=== PATIENT | male | born 1975 | race Caucasian/White ===

== ENCOUNTER 2016-12-24 17:36 | Emergency (ER) | payer BC ==
[~2016-12-24] VITALS: Ht 180.3 cm; Wt 81.7 kg
[2016-12-25] MEDS ORDERED: PROTONIX40 MG PO (00:12)
== END 2016-12-24 19:53 | disposition home or self-care (01) ==
LOC: ED 17:36
DX: E16.2 Hypoglycemia, unspecified (principal)
CPT/HCPCS: 80048; 99283

== ENCOUNTER 2016-12-24 23:55 | Emergency (ER) | payer BC ==
[~2016-12-24] VITALS: Ht 180.3 cm; Wt 81.7 kg
[2016-12-25] MEDS ORDERED: PROTONIX40 MG PO (00:12)
--- NOTE | 2016-12-26 22:27 | EKG ---
[facility] [address] [facility] [place] [address] Signed Normal sinus rhythm Normal ECG No previous ECGs available Confirmed by HANK DOSS MD ([id number]) on 12/26/2016 10:27:47 PM Electronically Signed By: HANK DOSS MD 12/26/16 2227 PATIENT NAME: JORDAN MOSCOSO Electrocardiogram DATE OF : 79 PHYSICIAN: HANK DOSS MD REPORT #: [id number] REPORT IS CONFIDENTIAL AND NOT TO BE RELEASED WITHOUT AUTHORIZATION
== END 2016-12-25 02:28 | disposition home or self-care (01) ==
LOC: ED 23:55
DX: R11.10 Vomiting, unspecified (principal); R19.7 Diarrhea, unspecified; Z79.899 Other long term (current) drug therapy
CPT/HCPCS: 74177; 84436; 84479; 84480; 85025; 93005; 93010; 96361; 96374; 99284; J2405; J7030; Q9967

== ENCOUNTER 2017-01-06 22:31 | Emergency (ER) | payer BC ==
[~2017-01-06] VITALS: Ht 180.3 cm; Wt 81.7 kg
[~2017-01-06 22:31] MED LIST: PROTONIX40 MG PO
[2017-01-07] MEDS ORDERED: GLUTOSE 1537.5 GM PO (00:16)
== END 2017-01-07 00:26 | disposition home or self-care (01) ==
LOC: ED 22:31
DX: E16.2 Hypoglycemia, unspecified (principal); Z79.899 Other long term (current) drug therapy
CPT/HCPCS: 80053; 81001; 85025; 96374; 99283; J2405

== ENCOUNTER 2019-03-13 18:27 | Inpatient (IN) | payer BC ==
[~2019-03-13] VITALS: Ht 180.3 cm; Wt 88.2 kg
--- OUTSIDE RECORDS SUMMARY | ~2019-03-13 | XMS | Encounter Summary ---
Demographics + + + | Address | [address] | | | [place] [address] | + + + | Home Phone | | + + + | Preferred Language | Unknown | + + + | Marital Status | Single | + + + | Gnosticist Affiliation | 1077 | + + + | Race | Unknown | + + + | Ethnic Group | Unknown | + + + Author + + + | Author | [facility] | | | and Freddy | + + + | Organization | [facility] | | | and [place]uel[place] | + + + | Address | Unknown | + + + | Phone | Unavailable | + + + Support + + + + + | Name | Relationship | Address | Phone | + + + + + | Emily Anton | ECON | Unknown | | + + + + + | Saige Forman | TENA | [address] | | | | | [place] [address] | | + + + + + Care Team Providers + +------+ + | Care Deflash And Wash Operator Name | Role | Phone | + +------+ + PCP | Unavailable | + +------+ + Encounter Details +--------+ + + + + | Date | Type | Department | Care Team | Description | +--------+ + + + + | 06/14/ | [facility] | Jonatan Montoya, REGISTERED RADIOLOGIC TECHNOLOGIST | | | 2015 | Encounter | [facility] | [address], | | | | | [facility] [address] | [place] [address] | | | | | [address] [facility], | [phone] | | | | | [place] [address] | | | | | | [phone] | | | +--------+ + + + + Social History + +-------+ +--------+------+ | Tobacco Use | Types | Packs/Day | Years | Date | | | | | Used | | + +-------+ +--------+------+ | Never Assessed | | | | | + +-------+ +--------+------+ + + + | Sex Assigned at | Date Recorded | | | | + + + | Not on file | | + + + + + + + | Job Start Date | Occupation | Industry | + + + + | Not on file | Not on file | Not on file | + + + + + + + + | Travel History | Travel Start | Travel End | + + + + + + | No recent travel history available. | + + documented as of this encounter Plan of Treatment Not on filedocumented as of this encounter Visit Diagnoses Not on filedocumented in this encounter"
--- OUTSIDE RECORDS SUMMARY | ~2019-03-13 | XMS | Encounter Summary ---
Demographics + + + | Address | [address] | | | [place] [address] | + + + | Home Phone | | + + + | Preferred Language | Unknown | + + + | Marital Status | Single | + + + | Tenriism Affiliation | 1077 | + + + | Race | Unknown | + + + | Ethnic Group | Unknown | + + + Author + + + | Author | [facility] | | | and Freddy | + + + | Organization | [facility] | | | and [...] | Saige Forman | TENA | [address] | | | | | [place] [address] | | + + + + + Care Team Providers + +------+ + | Care Powder Guard Name | Role | Phone | + +------+ + | Kemar Covington DO | PCP | | + +------+ + Reason for Visit Auth/Cert +--------+--------+ + + + + | Status | Reason | Specialty | Diagnoses / | Referred By | Referred To | | | | | Procedures | Contact | Contact | +--------+--------+ + + + + | | | | Diagnoses | | | | | | | Intractable | | | | | | | cyclical | | | | | | | vomiting | | | | | | | with nausea | | | | | | | (G43.A1) | | | | | | | Procedures | | | | | | | PA | | | | | | | ESOPHAGOGAST | | | | | | | RODUODENOSCO | | | | | | | PY TRANSORAL | | | | | | | DIAGNOSTIC | | | | | | | PA EGD | | | | | | | TRANSORAL | | | | | | | BIOPSY | | | | | | | SINGLE/MULTI | | | | | | | PLE EGD | | | +--------+--------+ + + + + Encounter Details +--------+---------+ + + + | Date | Type | Department | Care Team | Description | +--------+---------+ + + + | 02/01/ | Surgery | [facility] | Abhinav Melendez | EGD | | 2016 | | [facility] | MD [address] | | | | | [address] | [place] | | | | | [place] | [place] [address] | | | | | [address] | [phone] | | | | | [phone] | | | +--------+---------+ + + + Social History + +-------+ +--------+------+ | Tobacco Use | Types | Packs/Day | Years | Date | | | | | Used | | + +-------+ +--------+------+ | Never Smoker | | | | | + +-------+ +--------+------+ + +------+---+---+ | Smokeless Tobacco: | Chew | | | | Current User | | | | + +------+---+---+ + + | Comments: Using "Zyn" nicotine pouch | + + + + +---------+ + | Alcohol Use | Drinks/Week | oz/Week | Comments | + + +---------+ + | No | | | | + + +---------+ + + + + | Sex Assigned at [...] + + documented as of this encounter Last Filed Vital Signs + + + + + | Vital Sign | Reading | Time Taken | Comments | + + + + + | Blood Pressure | 111/82 | 02/01/2017 11:00 AM | | | | | PST | | + + + + + | Pulse | 87 | 02/01/2017 11:00 AM | | | | | PST | | + + + + + | Temperature | 36.6 C (97.9 F) | 02/01/2017 8:32 AM | | | | | PST | | + + + + + | Respiratory Rate | 14 | 02/01/2017 11:00 AM | | | | | PST | | + + + + + | Oxygen Saturation | 97% | 02/01/2017 11:00 AM | | | | | PST | | + + + + + | Inhaled Oxygen | - | - | | | Concentration | | | | + + + + + | Weight | 81.5 kg (179 lb 10.8 | 02/01/2017 8:32 AM | | | | oz) | PST | | + + + + + | Height | 180.3 cm (5' 11") | 02/01/2017 8:32 AM | | | | | PST | | + + + + + | Body Mass Index | 25.06 | 02/01/2017 8:32 AM | | | | | PST | | + + + + + documented in this encounter Medications at Time of Discharge + + + +---------+ + + | Medication | Sig | Dispensed | Refills | Start | End Date | | | | | | Date | | + + + +---------+ + + | glucose 4 g | Take 1 tablet by | | 0 | | | | chewable tablet | mouth 6 times daily. | | | | | | | As needed | | | | | + + + +---------+ + + | Trell MISC | Use as directed | | 0 | 12/28/19 | | | | | | | 17 | | + + + +---------+ + + | Multiple | Take 1 tablet by | | 0 | | | | Vitamins-Minerals | mouth Daily. | | | | | | (MULTIVITAMIN | | | | | | | GUMMIES MENS) CHEW | | | | | | + + + +---------+ + + documented as of this encounter Plan of Treatment Not on filedocumented as of this encounter Procedures + +--------+ + + + | Procedure Name | Priori | Date/Time | Associated Diagnosis | Comments | | | ty | | | | + +--------+ + + + | EGD | | 02/01/2017 | Intractable | | | | | 9:47 AM | cyclical vomiting | | | | | PST | with nausea (G43.A1) | | + +--------+ + + + | EGD | Routin | 02/01/2017 | | Results for this | | | e | 9:44 AM | | procedure are in the | | | | PST | | results section. | + +--------+ + + + | POC GLUCOSE | Routin | 02/01/2017 | | Results for this | | | e | 8:51 AM | | procedure are in the | | | | PST | | results section. | + +--------+ + + + | SURGICAL PATHOLOGY | Routin | 02/01/2017 | | Results for this | | EXAM | e | 12:00 AM | | procedure are in the | | | | PST | | results section. | + +--------+ + + + documented in this encounter Results EGD (02/01/2017 9:44 AM PST) + + | Specimen | + + | | + + + + -+ | Narrative | Performed At | + + -+ | | [facility] | | GastroenterologyPatient Name: Chris Bobbyjoanieedkaila Date: 02/01/2017 9:44 | [facility] | | AMMRN: [id number] #: [id number] of : 1975Admit | | | Type: AmbulatoryAge: 41[facility]Gender: MaleNote Status: | | | FinalizedAttending MD: ABHINAV MELENDEZ , MDProcedure: | | | Upper GI endoscopyIndications: Abnormal CT of the GI tract, | | | Persistent vomiting of unknown | | | causeProviders: ABHINAV MELENDEZ MD, Geneva Lucio | | | MURPHY Peace, Alecia Sexton RN, | | | Regina Mcleod, TechnicianReferring MD: Kemar Covington, DO | | | (Referring MD)Medicines: Fentanyl 100 micrograms IV, | | | Midazolam 6 mg IV, Benzocaine | | | sprayComplications: No immediate complications.Procedure: | | | Pre-Anesthesia Assessment: - - Prior to the procedure, a History | | | and Physical was performed, and patient medications and | | | allergies were reviewed. The patient is competent. The risks | | | and benefits of the procedure and the sedation options and | | | risks were discussed with the patient. All questions were | | | answered and informed consent was obtained. Patient identification and | | | proposed procedure were verified by the physician and the | | | nurse in the pre-procedure area in the procedure room. Mental | | | Status Examination: alert and oriented. Airway Examination: | | | Mallampati Class II (the uvula but not tonsillar pillars | | | visualized). Respiratory Examination: clear to auscultation. CV | | | Examination: normal. Prophylactic Antibiotics: The patient | | | does not require prophylactic antibiotics. Prior Anticoagulants: | | | The patient has taken no previous anticoagulant or antiplatelet | | | agents. ASA Grade Assessment: II - A patient with mild systemic | | | disease. After reviewing the risks and benefits, the patient | | | was deemed in satisfactory condition to undergo the procedure. | | | The anesthesia plan was to use moderate sedation / analgesia | | | (conscious sedation). Immediately prior to administration of | | | medications, the patient was re-assessed for adequacy to | | | receive sedatives. The heart rate, respiratory rate, oxygen | | | saturations, blood pressure, adequacy of pulmonary ventilation, and | | | response to care were monitored throughout the procedure. The | | | physical status of the patient was re-assessed after the | | | procedure. After obtaining informed consent, the endoscope was | | | passed under direct vision. Throughout the procedure, the | | | patient's blood pressure, pulse, and oxygen saturations were | | | monitored continuously. The Endoscope was introduced through | | | the mouth, and advanced to the second part of duodenum. The | | | upper GI endoscopy was accomplished without difficulty. The | | | patient tolerated the procedure well. After obtaining informed | | | consent, the endoscope was passed under direct vision. | | | Throughout the procedure, the patient's blood pressure, pulse, | | | and oxygen saturations were monitored continuously. The Endoscope was | | | introduced through the mouth, and advanced to the second part | | | of duodenum.Findings: The upper third of the esophagus, | | | middle third of the esophagus and lower third of the esophagus | | | were normal. Biopsies were taken with a cold forceps for | | | histology. The Z-line was regular and was found 38 cm from the | | | incisors. The cardia, gastric fundus and gastric body were | | | normal. Biopsies were taken with a cold forceps for histology. | | | The gastric antrum was normal. Biopsies were taken with a cold | | | forceps for histology. The duodenal bulb and second | | | portion of the duodenum were normal. Biopsies were taken with a | | | cold forceps for histology. The cardia and gastric fundus were | | | normal on retroflexion.Moderate Sedation: Moderate (conscious) | | | sedation was administered by the endoscopy nurse and supervised | | | by the endoscopist. The following parameters were monitored: | | | oxygen saturation, heart rate, blood pressure, respiratory | | | rate, EKG, adequacy of pulmonary ventilation, and response to care. | | | Total physician intraservice time was 16 minutes.Impression: | | | - Normal upper third of esophagus, middle third of esophagus and | | | lower third of esophagus. Biopsied. - Z-line regular, 38 | | | cm from the incisors. - Normal cardia, gastric fundus and | | | gastric body. Biopsied. - Normal antrum. Biopsied. - | | | Normal duodenal bulb and second portion of the duodenum. | | | Biopsied.Recommendation: - Await pathology results. - | | | Resume previous diet. - Continue present medications. - | | | The findings and recommendations were discussed with the | | | patient.ABHINAV MELENDEZ MD02/01/2017 10:15:56 AMThis report has | | | been signed electronically.Number of Addenda: 0Note Initiated On: | | | 02/01/2017 9:44 AMTotal Procedure Duration: 0 hours 8 minutes 4 seconds | | | Scope In: 10:01:21 AMScope Out: 10:09:25 AM [facility] | | | [facility], [address] [place] [address] | | | [phone] | | | - Normal antrum. Biopsied. | | | - Normal duodenal bulb and second portion of the duodenum. Biopsied. | | |Recommendation: | | | - Await pathology results. | | | - Resume previous diet. | | | - Continue present medications. | | | - The findings and recommendations were discussed with the patient. | | |ABHINAV MELENDEZ MD | | |02/01/2017 10:15:56 AM | | |This report has been signed electronically. | | |Number of Addenda: 0 | | |Note Initiated On: 02/01/2017 9:44 AM | | |Total Procedure Duration: 0 hours 8 minutes 4 seconds | | |Scope In: 10:01:21 AM | | |Scope Out: 10:09:25 AM | | | [facility], [address] [place] [address] | | | [id number] | | + + -+ + +---------+ + + | Performing | Address | City/State[facility] | Phone Number | | Organization | | | | + +---------+ + + | [facility] | | | | + +---------+ + + POC Glucose (02/01/2017 8:51 AM PST) + +-------+ + + + | Component | Value | Ref Range | Performed | Pathologist | | | | | At | Signature | + +-------+ + + + | Glucose, | 90 | 70 - 109 mg/dL | [facility] | | POC | | | [facility] | | | | | | [facility] | | | | | | [facility] - | | | | | | LABORATORY | | + +-------+ + + + + + | Specimen | + + | Blood | + + + + + + + | Performing | Address | City/State/Zipcode | Phone Number | | Organization | | | | + + + + + | [facility] | [address] | [place], [place] | [phone] | | [facility] | | [address] | | | - LABORATORY | | | | + + + + + Surgical Pathology Exam (02/01/2017 12:00 AM PST) + + | Specimen | + + | | + + + + + | Narrative | Performed At | + + + | SPECIMEN(S): A GASTRIC ANTRUM BIOPSY SPECIMEN(S): B GASTRIC BODY | [facility] | | BIOPSY SPECIMEN(S): C DUODENAL BIOPSY SPECIMEN(S): D DISTAL | [facility] | | ESOPHAGEAL BIOPSY SPECIMEN(S): E PROXIMAL ESOPHAGEAL BIOPSY SPECIMEN | | | SOURCE: A. GASTRIC ANTRUM BIOPSY B. GASTRIC BODY BIOPSY C. | | | DUODENAL BIOPSY D. DISTAL ESOPHAGEAL BIOPSY E. PROXIMAL ESOPHAGEAL | | | BIOPSY CLINICAL HISTORY: G43.A1 (Cyclical vomiting, intractable) | | | MICROSCOPIC DESCRIPTION: Histologic sections of all submitted blocks | | | are examined by light microscopy. These findings, together with the | | | gross examination, support the pathologic diagnosis. FINAL PATHOLOGIC | | | DIAGNOSIS: A. Stomach, gastric antrum, biopsy: - Extensive | | | chronic gastritis with mild activity and reactive epithelial changes. | | | - Positive for abundant Helicobacter-type organisms. B. Stomach, | | | gastric body, biopsy: - Chronic gastritis with focal mild activity | | | and vascular congestion. - Positive for Helicobacter-type | | | organisms. C. Duodenal biopsy: - Chronic inactive duodenitis; | | | villous architecture preserved. D. Esophagus, distal, biopsy: - | | | Fragments of squamous mucosa with no significant diagnostic | | | abnormality. - No evidence of significantly increased | | | intraepithelial eosinophils. E. Esophagus, proximal, biopsy: - | | | Fragments of squamous mucosa with no significant diagnostic | | | abnormality. - No evidence of significantly increased | | | intraepithelial eosinophils. CLR:[facility]:C2NR GROSS DESCRIPTION: The | | | specimen is received in five parts. A. The specimen is labeled | | | "Stroe, Chris T" and designated "gastric antrum bxs" on the requisition. | | | Received in formalin are three gary colored tissue fragments, 0.25-0.5 | | | cm, all into (A1). B. The specimen is labeled "Stroe, Chris T" and | | | designated gastric body bxs" on the requisition. Received in formalin | | | are five gary colored tissue fragments, 0.15-0.5 cm, all into (B1). C. | | | The specimen is labeled "Stroe, Chris T" and designated "duodenal bxs" | | | on the requisition. Received in formalin are five gary colored tissue | | | fragments, 0.2-0.6 cm, all into (C1). D. The specimen is labeled | | | "Chris Forman T" and designated "distal esophageal bxs" on the | | | requisition. Received in formalin are three cream gary colored tissue | | | fragments, 0.3-0.5 cm, all into (D1). E. The specimen is labeled | | | "Chris Forman T" and designated "proximal esophageal bxs" on the | | | requisition. Received in formalin are two cream colored tissue | | | fragments, 0.2-0.5 cm, all into (E1). yt:CLR:[facility] PERFORMING | | | LABORATORY: Tissue processing and slide preparation were performed by | | | [facility], [facility] [address], [place] [address] | | | (Timber Appraiser: Chris Gentile M.D. CLIA#: [id number]). | | | Professional interpretation was performed by [facility], [address] | | [facility], [address], [place] [address] (Timber Appraiser: Chris | | Nabeel Gentile M.D.; CLIA#: [id number]). Diagnostician: Dipesh | | | Mi Wilkinson MD Pathologist Electronically Signed 02/02/2017 | | + + + + +---------+ + + | Performing | Address | City/State/Zipcode | Phone Number | | Organization | | | | + +---------+ + + | [facility] | | | | | [place] | | | | + +---------+ + + documented in this encounter Visit Diagnoses Not on filedocumented in this encounter Administered Medications + +--------+ +---------+------+------+ | Medication Order | MAR | Action | Dose | Rate | Site | | | Action | Date | | | | + +--------+ +---------+------+------+ | benzocaine (HURRICAINE) 20% | Given | 02/02/20 | 1 spray | | | | non-aerosol spray PRN, Starting | | 17 9:54 | | | | | 02/01/17 at 0954 | | AM PST | | | | + +--------+ +---------+------+------+ +---+---+ | | | +---+---+ + +-------+ +--------+---+---+ | fentaNYL (PF) injection PRN, | Given | 02/02/20 | 25 mcg | | | | Starting 02/01/17 at 0955 | | 17 9:58 | | | | | | | AM PST | | | | + +-------+ +--------+---+---+ +-------+ +--------+---+---+ | Given | 02/02/20 | 25 mcg | | | | | 17 9:56 | | | | | | AM PST | | | | +-------+ +--------+---+---+ | Given | 02/02/20 | 50 mcg | | | | | 17 9:55 | | | | | | AM PST | | | | +-------+ +--------+---+---+ +---+---+ | | | +---+---+ + +---------+ +--------+-------+--------+ | lactated ringers (LR) infusion | New Bag | 02/02/20 | 1,000 | 100 | Right | | at 100 mL/hr, Intravenous, | | 17 9:10 | mLs | mL/hr | Arm | | CONTINUOUS, Starting Mon02/01/17 | | AM PST | | | | | at 0900, Pre-op | | | | | | + +---------+ +--------+-------+--------+ +---+---+ | | | +---+---+ + +-------+ +------+---+---+ | midazolam (VERSED) 1 mg/mL | Given | 02/02/20 | 1 mg | | | | injection PRN, Starting Mon | | 10:03 | | | | | 02/01/17 at 1003 | | AM PST | | | | + +-------+ +------+---+---+ +---+---+ | | | +---+---+ + +-------+ +------+---+---+ | midazolam (VERSED) 5 mg/mL | Given | 02/02/20 | 1 mg | | | | injection PRN, Starting Mon | | 17 9:59 | | | | | 02/01/17 at 0954 | | AM PST | | | | + +-------+ +------+---+---+ +-------+ +------+---+---+ | Given | 02/02/20 | 1 mg | | | | | 17 9:56 | | | | | | AM PST | | | | +-------+ +------+---+---+ | Given | 02/02/20 | 3 mg | | | | | 17 9:54 | | | | | | AM PST | | | | +-------+ +------+---+---+ +---+---+ | | | +---+---+ documented in this encounter
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
--- OUTSIDE RECORDS SUMMARY | ~2019-03-13 | XMS | Encounter Summary ---
Demographics + + + | Address | [address] | | | [place] [address] | + + + | Home Phone | | + + + | Preferred Language | Unknown | + + + | Marital Status | Single | + + + | Worship Affiliation | 1077 | + + + | Race | Unknown | + + + | Ethnic Group | Unknown | + + + Author + + + | Author | [facility] | | | and Freddy | + + + | Organization | [facility] | | | [...] + + + | Saige Forman | ECON | [address] | | | | | [place] [address] | | + + + + + Care Team Providers + +------+ + | Care Armed Custom Protection Officer Name | Role | Phone | + +------+ + PCP | Unavailable | + +------+ + Encounter Details +--------+ + + + + | Date | Type | Department | Care Team | Description | +--------+ + + + + | 06/03/ | Hospital | [facility] | | | | 1996 | Encounter | [facility] | | | | | | CENTER [address] | | | | | | [place] | | | | | | [address] | | | | | | [phone] | | | +--------+ + + + [...]
--- OUTSIDE RECORDS SUMMARY | ~2019-03-13 | XMS | Encounter Summary ---
Demographics + + + | Address | [address] | | | [place] [address] | + + + | Home Phone | | + + + | Preferred Language | Unknown | + + + | Marital Status | Single | + + + | Sabianism Affiliation | 1077 | + + + | Race | Unknown | + + + | Ethnic Group | Unknown | + + + Author + + + | Author | [facility] | | | and Freddy | + + + | Organization | [facility] | | | [...] | | | | | [place] [address] | | + + + + + Care Team Providers + +------+ + | Care Utility Gelatin Maker Name | Role | Phone | + [...] | | | | | | | MI | | | | | | | ESOPHAGOGAST | | | | | | | RODUODENOSCO | | | | | | | PY TRANSORAL | | | | | | | DIAGNOSTIC | | | | | | | MI EGD | | | | | | | TRANSORAL | | | | | | | BIOPSY | | | | | | | SINGLE/MULTI | | | | | | | PLE EGD | | | +--------+--------+ + + + + Encounter Details +--------+ + + + + | Date | Type | Department | Care Team | Description | +--------+ + + + + | 02/01/ | Hospital | [facility] | Abhinav Melendez | Abnormal findings on | | 2017 | Encounter | MED CTR MP INTRA OP | MD [address] | diagnostic imaging | | | | [address] | [address] [place] | of liver and biliary | | | | [place], [place] | [place] [address] | tract; Intractable | | | | [address] | [phone] | cyclical vomiting | | | | [phone] | | with nausea | +--------+ + + + + Social [...] At | + + -+ | | [facility] | | GastroenterologyPatient Name: Chris Harris Date: 02/01/2017 9:44 | PROVATION | | AMMRN: [id number] #: [id number] of : 1975Admit | | | Type: AmbulatoryAge: 41Room: [facility] 02Gender: MaleNote Status: | | | FinalizedAttending MD: ABHINAV MELENDEZ MDProcedure: | | | Upper GI endoscopyIndications: Abnormal CT of the GI tract, | | | Persistent vomiting of unknown | | | causeProviders: ABHINAV MELENDEZ MD, Geneva Lucio | | | MURPHY Peace, Alecia Sexton RN, | | | Regina Mcleod, TechnicianReferring MD: eKmar Covington, | | | (Referring MD)Medicines: Fentanyl 100 [...] AM [facility] | | | [facility], [address] [place] [address] | | | [phone] | | | - Normal antrum. Biopsied. [...] |Scope Out: 10:09:25 AM | | | [facility], [address] [place] [address] | | | [address] | | + + -+ + +---------+ [...] | | | POC | | | STTimothy SALCIDO | | | | | | [...] | + + + + + | [facility] | [address] | [place] | [phone] | | [facility] | | [address] | | | - LABORATORY | | [...] significantly increased | | | intraepithelial eosinophils. CLR:[facility]:C2NR GROSS DESCRIPTION: The | | | specimen [...] | | | The specimen is labeled "Chris Forman T" and designated "duodenal bxs" | | | on the requisition. Received in formalin are five gary colored tissue | | | fragments, 0.2-0.6 cm, all into (C1). D. The specimen is labeled | | | "NargiseArgelian T" and designated "distal esophageal bxs" on the | | | requisition. Received in formalin are three cream gary colored tissue | | | fragments, 0.3-0.5 cm, all into (D1). E. The specimen is labeled | | | "StroeArgelian T" and designated "proximal esophageal bxs" on the | | | requisition. Received in formalin are two cream colored tissue | | | fragments, 0.2-0.5 cm, all into (E1). yt:CLR:[facility] PERFORMING | | | LABORATORY: Tissue processing and slide preparation were performed by | | | [facility], [facility], [address], [place] [address] | | | (Facilities Flight Check Pilot: Chris Gentile M.D. CLIA#: [id number]). | | | Professional interpretation was performed by [facility], [address], [place] [address] (Facilities Flight Check Pilot: Chris Gentile M.D.; CLIA#: [id number]). Diagnostician: Dipesh | | | Mi Wilkinson [...] + | Diagnosis | + + | Abnormal findings on diagnostic imaging of liver and biliary tract | + + | Intractable cyclical vomiting with nausea | + + documented in this encounter Administered Medications + +--------+ [...] 25 mcg | | | | Starting Mon02/01/17 at 0955 | | 17 9:58 | [...] mL/hr | Arm | | CONTINUOUS, Starting 02/01/17 | | AM PST | | | | | at 0900, Pre-op | | | | | | + +---------+ +--------+-------+--------+ +---+---+ | | | +---+---+ + +-------+ +------+---+---+ | midazolam (VERSED) 1 mg/mL | Given | 02/02/20 | 1 mg | | | | injection PRN, Starting Wed | | 17 10:03 | | | | | 02/01/17 at 1003 | | AM PST | | | | + +-------+ +------+---+---+ +---+---+ | | | +---+---+ + +-------+ +------+---+---+ | midazolam (VERSED) 5 mg/mL | Given | 02/02/20 | 1 mg | | | | injection PRN, Starting Wed | | 17 9:59 | | | [...]
--- OUTSIDE RECORDS SUMMARY | ~2019-03-13 | XMS | Encounter Summary ---
Demographics + + + | Address | [address] | | | [place] [address] | + + + | Home Phone | | + + + | Preferred Language | Unknown | + + + | Marital Status | Single | + + + | Jew Affiliation | 1077 | + + + | Race | Unknown | + + + | Ethnic Group | Unknown | + + + Author + + + | Author | [facility] | | | and Freddy | + + + | Organization | [facility] | | | and [...] | | | | | [place] [address] | | + + + + + Care Team Providers + +------+ + | Care Sales Service Technician Name | Role | Phone | + +------+ + | Kemar Covington DO | PCP | | + +------+ + Encounter Details +--------+ + + + + | Date | Type | Department | Care Team | Description | +--------+ + + + + | 01/23/ | Episode | [facility] | Ivonne Ventura, | | | 2017 | Changes | GASTROENTEROLOGY | Claims Service Representative | | | | | [address] [facility] | | | | | | [address] [place] | | | | | | [address] | | | | | | [phone] | | | +--------+ + + + [...]
--- OUTSIDE RECORDS SUMMARY | ~2019-03-13 | XMS | Clinical Summary ---
Demographics + + + | Address | [address] | | | [place] [address] | + + + | Home Phone | | + + + | Preferred Language | Unknown | + + + | Marital Status | Single | + + + | Anglican Affiliation | 1077 | + + + | Race | Unknown | + + + | Ethnic Group | Unknown | + + + Author + + + | Author | [facility] | | | and Freddy | + + + | Organization | [facility] | | | [...] | | | | | [place] [address] | | + + + + + Care Team Providers + +------+ + | Care Instrument Person Name | Role | Phone | + +------+ + | Kemar Covington DO | PCP | | + +------+ + Allergies No Known Allergies Medications + + + +---------+------+------+-------+ | Medication | Sig | Dispensed | Refills | Star | End | Statu | | | | | | t | Date | s | | | | | | Date | | | + + + +---------+------+------+-------+ | glucose 4 g | Take 1 tablet by | | 0 | | | Activ | | chewable tablet | mouth 6 times daily. | | | | | e | | | As needed | | | | | | + + + +---------+------+------+-------+ | Lancets MISC | Use as directed | | 0 | 10/3 | | Activ | | | | | | 1/20 | | e | | | | | | 17 | | | + + + +---------+------+------+-------+ | Multiple | Take 1 tablet by | | 0 | | | Activ | | Vitamins-Minerals | mouth Daily. | | | | | e | | (MULTIVITAMIN | | | | | | | | GUMMIES MENS) CHEW | | | | | | | + + + +---------+------+------+-------+ Active Problems + + + | Problem | Noted Date | + + + | Helicobacter positive gastritis | 02/02/2017 | + + + | Intractable cyclical vomiting with nausea | 01/17/2017 | + + + | Abnormal findings on diagnostic imaging of liver and biliary | 01/10/2017 | | tract | | + + + | Hip joint painful on movement | 01/10/2017 | + + + | Nonallopathic lesion of hip region | 01/10/2017 | + + + | Nonallopathic lesion of lumbar region | 01/10/2017 | + + + | Pain in thoracic spine | 01/10/2017 | + + + | Nonallopathic lesion of cervical region | 01/10/2017 | + + + | Nonallopathic lesion of thoracic region | 01/10/2017 | + + + | Right upper quadrant pain | 09/05/2014 | + + + | Acute upper respiratory infection | 06/14/2014 | + + + | Diagnosis unknown | 06/14/2014 | + + + Immunizations + + + + | Name | Administration Dates | Next Due | + + + + | INFLUENZA, | 01/03/2007 | | | UNSPECIFIED | | | | FORMULATION | | | + + + + | TDAP, (ADOL/ADULT) | 07/16/2012 | | + + + + Family History + + +------+ + | Medical History | Relation | Name | Comments | + + +------+ + | Arthritis | Father | | | + + +------+ + | Rheumatologic | Father | | | | disease | | | | + + +------+ + | Diabetes, NIDDM | Father | | | + + +------+ + | Congenital heart | Maternal | | | | disease | Grandmoth | | | | | er | | | + + +------+ + | Other (see comment) | Maternal | | cerebrovascular accident | | | Grandmoth | | | | | er | | | + + +------+ + | Diabetes | Paternal | | | | | Grandfath | | | | | er | | | + + +------+ + | Diabetes | Paternal | | | | | Grandmoth | | | | | er | | | + + +------+ + | Hypertension | Paternal | | | | | Grandmoth | | | | | er | | | + + +------+ + | Other cancer | Paternal | | cerebrovascular accident | | | Grandmoth | | | | | er | | | + + +------+ + + +------+ + + | Relation | Name | Status | Comments | + +------+ + + | Father | | | | + +------+ + + | Father | | | | + +------+ + + | Father | | | | + +------+ + + | Maternal Grandmother | | | | + +------+ + + | Mother | | Alive | | + +------+ + + | Paternal Grandfather | | | | + +------+ + + | Paternal Grandmother | | | | + +------+ + + | Sister | | Alive | | + +------+ + + Social History + +-------+ +--------+------+ [...] recent travel history available. | + + Last Filed Vital Signs + + + + + | Vital Sign | Reading | Time Taken | Comments | + + + + + | Blood Pressure | 102/60 | 03/13/2017 4:26 PM | | | | | PST | | + + + + + | Pulse | 68 | 03/13/2017 4:26 PM | | | | | PST [...] + + + + | Weight | 79.7 kg (175 lb 12.8 | 03/13/2017 4:26 PM | | | | oz) | PST | | + + + + + | Height | 180.3 cm (5' 11") | 02/01/2017 8:32 AM | | | | | PST | | + + + + + | Body Mass Index | 24.52 | 02/01/2017 8:32 AM | | | | | PST | | + + + + + Plan of Treatment + + + + + | Health Maintenance | Due Date | Last Done | Comments | + + + + + | Vaccine: Influenza | | 01/03/2007 | | | (#1) | 9 | | | + + + + + | Vaccine: | | 07/16/2012 | | | Dtap/Tdap/Td (2 - | 3 | | | | Td) | | | | + + + + + Results Not on filefrom Last 3 Months Insurance +-------+--------+ +--------+-------+---------+------+ | Payer | Benefi | Subscriber | Effect | Phone | Address | Type | | | t Plan | ID | sean | | | | | | / | | Dates | | | | | | Group | | | | | | +-------+--------+ +--------+-------+---------+------+ | BCBS | BCBS | [id number] | 10/29/19 | | | PPO | | | OOS | 1 | 15-Pre | | | | | | PPO | | sent | | | | +-------+--------+ +--------+-------+---------+------+ + +--------+ +--------+ + + | Guarantor Name | Accoun | Relation to | Date | Phone | Billing Address | | | t Type | Patient | of | | | | | | | | | | + +--------+ +--------+ + + | Stroe,Chris T | Person | Self [birth year] | [address] [place], | | | [place] | | 1976 | [phone] | [place] [address] | | | gio | | | 6 (Home) | | + +--------+ +--------+ + + Advance Directives + + + + + | Type | Date Recorded | Patient | Explanation | | | | Canvas Cutter Hand | | + + + + + | Power of | | | | | Philatelic Consultant | | | | + + + + + | Advance | 02/01/2017 9:12 | | | | Directive | AM | | | + + + + +
--- OUTSIDE RECORDS SUMMARY | ~2019-03-13 | XMS | Encounter Summary ---
Demographics + + + | Address | [address] | | | [place] [address] | + + + | Home Phone | | + + + | Preferred Language | Unknown | + + + | Marital Status | Single | + + + | Advent Affiliation | 1077 | + + + | Race | Unknown | + + + | Ethnic Group | Unknown | + + + Author + + + | Author | [facility] | | | and Freddy | + + + | Organization | [facility] | | | [...] | | | | | [place] [address] | | + + + + + Care Team Providers + +------+ + | Care Caddie Name | Role | Phone | + [...] | 2017 | Changes | GASTROENTEROLOGY | [employer]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 | | | | | | [address] | | | | | | [address] | | | | | | [phone] | | | +--------+ + + + [...]
--- OUTSIDE RECORDS SUMMARY | ~2019-03-13 | XMS | Encounter Summary ---
Demographics + + + | Address | [address] | | | [place] [address] | + + + | Home Phone | | + + + | Preferred Language | Unknown | + + + | Marital Status | Single | + + + | Gnosticism Affiliation | 1077 | + + + | Race | Unknown | + + + | Ethnic Group | Unknown | + + + Author + + + | Author | [facility] | | | and Freddy | + + + | Organization | [facility] | | | and [...] | | | | | [place] [address] | | + + + + + Care Team Providers + +------+ + | Care Animal Surgeon Name | Role | Phone | + +------+ + | Kemar Covington DO | PCP | | + +------+ + Encounter Details +--------+ + + + + | Date | Type | Department | Care Team | Description | +--------+ + + + + | 01/10/ | Abstract | [facility] | Clayton Bravo MD | | | 2017 | | GASTROENTEROLOGY | [address], [place] | | | | | [address] [place] | [address] [place], [place] | | | | | [address] [place], [place] | [address] | | | | | [address] | | | | | | [phone] | | | +--------+ + + + [...] | + +--------+ + + + | BASIC METABOLIC | Routin | 01/10/2017 | | Results for this | | PANEL | e | | | procedure are in the | | | | | | results section. | + +--------+ + + + | EXTERNAL LAB: BUN | Routin | 12/25/2016 | | Results for this | | | e | | | procedure are in the | | | | | | results section. | + +--------+ + + + | EXTERNAL LAB: | Routin | 12/25/2016 | | Results for this | | GLUCOSE | e | | | procedure are in the | | | | | | results section. | + +--------+ + + + | EXTERNAL LAB: | Routin | 12/25/2016 | | Results for this | | CALCIUM | e | | | procedure are in the | | | | | | results section. | + +--------+ + + + | EXTERNAL LAB: CARBON | Routin | 12/25/2016 | | Results for this | | DIOXIDE | e | | | procedure are in the | | | | | | results section. | + +--------+ + + + | EXTERNAL LAB: | Routin | 12/25/2016 | | Results for this | | CHLORIDE | e | | | procedure are in the | | | | | | results section. | + +--------+ + + + | EXTERNAL LAB: | Routin | 12/25/2016 | | Results for this | | POTASSIUM | e | | | procedure are in the | | | | | | results section. | + +--------+ + + + | EXTERNAL LAB: SODIUM | Routin | 12/25/2016 | | Results for this | | | e | | | procedure are in the | | | | | | results section. | + +--------+ + + + | EXTERNAL LAB: CBC | Routin | 12/25/2016 | | Results for this | | | e | | | procedure are in the | | | | | | results section. | + +--------+ + + + | EXTERNAL LAB: CBC | Routin | 12/25/2016 | | Results for this | | | e | | | procedure are in the | | | | | | results section. | + +--------+ + + + | EXTERNAL LAB: EGFR | Routin | 12/25/2016 | | Results for this | | | e | | | procedure are in the | | | | | | results section. | + +--------+ + + + | EXTERNAL LAB: | Routin | 12/25/2016 | | Results for this | | CREATININE | e | | | procedure are in the | | | | | | results section. | + +--------+ + + + | THYROID PANEL | Routin | 12/25/2016 | | Results for this | | | e | | | procedure are in the | | | | | | results section. | + +--------+ + + + | CBC WITH | Routin | 12/25/2016 | | Results for this | | DIFFERENTIAL | e | | | procedure are in the | | | | | | results section. | + +--------+ + + + | COMPREHENSIVE | Routin | 12/25/2016 | | Results for this | | METABOLIC PANEL | e | | | procedure are in the | | | | | | results section. | + +--------+ + + + documented in this encounter Results Basic Metabolic Panel (01/10/2017) + + | Specimen | + + | Blood | + + + + + | Narrative | Performed At | + + + | Opened in error. | | + + + Comprehensive Metabolic Panel (12/25/2016) + +-------+ + + + | Component | Value | Ref Range | Performed | Pathologist | | | | | At | Signature | + +-------+ + + + | BUN/Creatin | 14.7 | 6.0 - 28.6 | | | | ine Ratio | | Ratio | | | + +-------+ + + + | Anion Gap | 11 | 7 - 21 mmol/L | | | + +-------+ + + + + + | Specimen | + + | Blood | + + External Lab: Calcium (12/25/2016) + +-------+ + + + | Component | Value | Ref Range | Performed | Pathologist | | | | | At | Signature | + +-------+ + + + | Calcium, | 9.4 | 8.4 - 10.2 | EXTERNAL | | | External | | | LAB | | + +-------+ + + + + +---------+ + + | Performing | Address | City/State/Zipcode | Phone Number | | Organization | | | | + +---------+ + + | EXTERNAL LAB | | | | + +---------+ + + External Lab: CBC (12/25/2016) + +-------+ + + + | Component | Value | Ref Range | Performed | Pathologist | | | | | At | Signature | + +-------+ + + + | PLT, | 266 | 140 - 440 | EXTERNAL | | | External | | | LAB | | + +-------+ + + + | Neutrophils | 47.6 | 39 - 80 | EXTERNAL | | | %, | | | LAB | | | External | | | | | + +-------+ + + + | Lymphocytes | 42.2 | 24 - 44 | EXTERNAL | | | %, | | | LAB | | | External | | | | | + +-------+ + + + | Monocytes | 8.6 | 0 - 12 | EXTERNAL | | | %, External | | | LAB | | + +-------+ + + + | Eosinophils | 1.5 | 0 - 6 | EXTERNAL | | | %, | | | LAB | | | External | | | | | + +-------+ + + + | RDW, | 11.7 | 10.5 - 15 | EXTERNAL | | | External | | | LAB | | + +-------+ + + + + +---------+ + + | Performing | Address | City/State/Zipcode | Phone Number | | Organization | | | | + +---------+ + + | EXTERNAL LAB | | | | + +---------+ + + External Lab: SANYA (12/25/2016) + +-------+ + + + | Component | Value | Ref Range | Performed | Pathologist | | | | | At | Signature | + +-------+ + + + | BUN, | 15 | 6 - 23 | EXTERNAL | | | External | | | LAB | | + +-------+ + + + + +---------+ + + | Performing | Address | City/State/Zipcode | Phone Number | | Organization | | | | + +---------+ + + | EXTERNAL LAB | | | | + +---------+ + + External Lab: Glucose (12/25/2016) + +-------+ + + + | Component | Value | Ref Range | Performed | Pathologist | | | | | At | Signature | + +-------+ + + + | Glucose, | 94 | 70 - 100 | EXTERNAL | | | External | | | LAB | | + +-------+ + + + + +---------+ + + | Performing | Address | City/State/Zipcode | Phone Number | | Organization | | | | + +---------+ + + | EXTERNAL LAB | | | | + +---------+ + + External Lab: Carbon Dioxide (12/25/2016) + +-------+ + + + | Component | Value | Ref Range | Performed | Pathologist | | | | | At | Signature | + +-------+ + + + | Carbon | 26 | 19 - 31 | EXTERNAL | | | Dioxide, | | | LAB | | | External | | | | | + +-------+ + + + + +---------+ + + | Performing | Address | City/State/Zipcode | Phone Number | | Organization | | | | + +---------+ + + | EXTERNAL LAB | | | | + +---------+ + + External Lab: Chloride (12/25/2016) + +-------+ + + + | Component | Value | Ref Range | Performed | Pathologist | | | | | At | Signature | + +-------+ + + + | Chloride, | 103 | 95 - 112 | EXTERNAL | | | External | | | LAB | | + +-------+ + + + + +---------+ + + | Performing | Address | City/State/Zipcode | Phone Number | | Organization | | | | + +---------+ + + | EXTERNAL LAB | | | | + +---------+ + + External Lab: Potassium (12/25/2016) + +-------+ + + + | Component | Value | Ref Range | Performed | Pathologist | | | | | At | Signature | + +-------+ + + + | Potassium, | 3.8 | 3.6 - 5.1 | EXTERNAL | | | External | | | LAB | | + +-------+ + + + + +---------+ + + | Performing | Address | City/State/Zipcode | Phone Number | | Organization | | | | + +---------+ + + | EXTERNAL LAB | | | | + +---------+ + + External Lab: Sodium (12/25/2016) + +-------+ + + + | Component | Value | Ref Range | Performed | Pathologist | | | | | At | Signature | + +-------+ + + + | Sodium, | 136 | 132 - 143 | EXTERNAL | | | External | | | LAB | | + +-------+ + + + + +---------+ + + | Performing | Address | City/State/Zipcode | Phone Number | | Organization | | | | + +---------+ + + | EXTERNAL LAB | | | | + +---------+ + + External Lab: eGFR (12/25/2016) + +-------+ + + + | Component | Value | Ref Range | Performed | Pathologist | | | | | At | Signature | + +-------+ + + + | eGFR, | 81 | | EXTERNAL | | | External | | | LAB | | + +-------+ + + + + + | Specimen | + + | Blood | + + + +---------+ + + | Performing | Address | City/State/Zipcode | Phone Number | | Organization | | | | + +---------+ + + | EXTERNAL LAB | | | | + +---------+ + + External Lab: Creatinine (12/25/2016) + +-------+ + + + | Component | Value | Ref Range | Performed | Pathologist | | | | | At | Signature | + +-------+ + + + | Creatinine, | 1.02 | 0.6 - 1.35 | EXTERNAL | | | External | | | LAB | | + +-------+ + + + + + | Specimen | + + | Blood | + + + +---------+ + + | Performing | Address | City/State/Zipcode | Phone Number | | Organization | | | | + +---------+ + + | EXTERNAL LAB | | | | + +---------+ + + Thyroid Panel (12/25/2016) + +-------+ + + + | Component | Value | Ref Range | Performed | Pathologist | | | | | At | Signature | + +-------+ + + + | T4, Total | 6.09 | 4.5 - 11.7 | | | + +-------+ + + + | T3 Uptake | 35.44 | 25 - 40 % | | | + +-------+ + + + | Free | 2.2 | 1.4 - 4.6 | | | | Thyroxine | | | | | | Index, | | | | | | External | | | | | + +-------+ + + + | T3, Total | 97 | 80 - 200 ng/dL | | | + +-------+ + + + + + | Specimen | + + | Blood | + + CBC with Differential (12/25/2016) + +-------+ + + + | Component | Value | Ref Range | Performed | Pathologist | | | | | At | Signature | + +-------+ + + + | MCH | 30.0 | 26.0 - 33.0 pg | | | + +-------+ + + + | MCHC | 34.0 | 31.0 - 37.0 % | | | + +-------+ + + + | % Basophils | 0.1 | 0.0 - 1.0 % | | | + +-------+ + + + + + | Specimen | + + | Blood | + + External Lab: CBC (12/25/2016) + +-------+ + + + | Component | Value | Ref Range | Performed | Pathologist | | | | | At | Signature | + +-------+ + + + | WBC, | 6.4 | 4.5 - 11 | EXTERNAL | | | External | | | LAB | | + +-------+ + + + | MCV, | 90 | 81 - 99 | EXTERNAL | | | External | | | LAB | | + +-------+ + + + + +---------+ + + | Performing | Address | City/State/Zipcode | Phone Number | | Organization | | | | + +---------+ + + | EXTERNAL LAB | | | | + +---------+ + + documented in this encounter Visit Diagnoses Not on filedocumented in this encounter"
--- OUTSIDE RECORDS SUMMARY | ~2019-03-13 | XMS | Encounter Summary ---
Demographics + + + | Address | [address] | | | [place] [address] | + + + | Home Phone | | + + + | Preferred Language | Unknown | + + + | Marital Status | Single | + + + | Jewish Affiliation | 1077 | + + + | Race | Unknown | + + + | Ethnic Group | Unknown | + + + Author + + + | Author | [facility] | | | and Freddy | + + + | Organization | [facility] | | | and [...] + + + | Saige Forman | TEAN | [address] | | | | | [place] [address] | | + + + + + Care Team Providers + +------+ + | Care Gullet Slitter Name | Role | Phone | + +------+ + | Kemar Coving[place] DO | PCP | | + +------+ + Encounter Details +--------+ + + + + | Date | Type | Department | Care Team | Description | +--------+ + + + + | 12/23/ | Emergency | [facility] | Zan Segovia, | Right upper quadrant | | 2017 | | MEDICAL [facility]ENTER | [address] | abdominal pain | | | | EMERGENCY CENTER | [place] [address] | | | | | [address] | [phone] | | | | | [place], [place] | | | | | | [address] | | | | | | [phone] | | | +--------+ + + + [...] + + + | Blood Pressure | 114/65 | 12/23/2016 4:13 AM | | | | | PDT | | + + + + + | Pulse | 65 | 12/23/2016 4:13 AM | | | | | PDT | | + + + + + | Temperature | 36.8 C (98.3 F) | 12/23/2016 4:13 AM | | | | | PDT | | + + + + + | Respiratory Rate | 18 | 12/23/2016 4:13 AM | | | | | PDT | | + + + + + | Oxygen Saturation | - | - | | + + + + + | Inhaled Oxygen | - | - | | | Concentration | | | | + + + + + | Weight | 86.3 kg (190 lb 4.2 | 12/23/2016 4:13 AM | | | | oz) | PDT | | + + + + + | Height | - | - | | + + + + + | Body Mass Index | 26.54 | 06/14/2014 1:36 PM | | | | | PDT | | + + + + + documented in this encounter Medications at Time of Discharge + + + +---------+ + + | Medication | Sig | Dispensed | Refills | Start | End Date | | | | | | Date | | + + + +---------+ + + | pantoprazole | Take 40 mg by mouth | | 0 | 12/24/19 | | | (PROTONIX) 40 mg | every morning. | | | 17 | 7 | | tablet | | | | | | + + + +---------+ + + documented as of this encounter Plan of Treatment Not on filedocumented as of this encounter Procedures + +--------+ + + + | Procedure Name | Priori | Date/Time | Associated Diagnosis | Comments | | | ty | | | | + +--------+ + + + | US ABDOMEN LIMITED | Routin | 12/23/2016 | | Results for this | | | e | 4:01 AM | | procedure are in the | | | | PDT | | results section. | + +--------+ + + + | URINALYSIS, REFLEX | Routin | 12/23/2016 | | Results for this | | MICROSCOPIC AND/OR | e | 2:32 AM | | procedure are in the | | CULTURE | | PDT | | results section. | + +--------+ + + + | EXTERNAL LAB: CBC | Routin | 12/23/2016 | | Results for this | | | e | 2:30 AM | | procedure are in the | | | | PDT | | results section. | + +--------+ + + + | C-REACTIVE PROTEIN | Routin | 12/23/2016 | | Results for this | | | e | 2:30 AM | | procedure are in the | | | | PDT | | results section. | + +--------+ + + + | LIPASE | Routin | 12/23/2016 | | Results for this | | | e | 2:30 AM | | procedure are in the | | | | PDT | | results section. | + +--------+ + + + | COMPREHENSIVE | Routin | 12/23/2016 | | Results for this | | METABOLIC PANEL | e | 2:30 AM | | procedure are in the | | | | PDT | | results section. | + +--------+ + + + documented in this encounter Results US Abdomen Limited (12/23/2016 4:01 AM PDT) + + | Specimen | + + | | + + + + + | Impressions | Performed At | + + + | Negative right upper quadrant ultrasound. [facility] | | | Electronically signed by Denilson Carter MD on Dec 23 2016 4:12AM | | | Referring Provider Line: [phone] ID: [id number] | | + + + + + + | Narrative | Performed At | + + + | EXAM: ABDOMEN ULTRASOUND LIMITED, RU EXAM DATE: 12/23/2016 | | | 04:02 AM. CLINICAL HISTORY: Abdominal pain COMPARISON: None. | | | TECHNIQUE: Real-time scanning was performed with static images | | | obtained. FINDINGS: Liver: Echotexture within normal limits | | | without suspicious abnormality seen. Main portal vein flow: | | | Hepatopetal. Gallbladder: No stones, wall thickening, or | | | sonographic Cosme's sign. Biliary System: CBD measures 5 mm. No | | | intrahepatic or extrahepatic ductal dilatation. Other: None. | | + + + + + | Procedure Note | + + | Morgan, Rad Conversion - 10/11/2018 10:32 AM PDT EXAM:ABDOMEN ULTRASOUND LIMITED, RUQ | | EXAM DATE: 12/23/2016 04:02 AM. CLINICAL HISTORY: Abdominal pain COMPARISON: None. | | TECHNIQUE: Real-time scanning was performed with static images obtained. FINDINGS:Liver: | | Echotexture within normal limits without suspicious abnormality seen. Main portal vein | | flow: Hepatopetal. Gallbladder: No stones, wall thickening, or sonographic Cosme's | | sign. Biliary System: CBD measures 5 mm. No intrahepatic or extrahepatic ductal | | dilatation. Other: None. IMPRESSION: Negative right upper quadrant ultrasound. [facility] | | Electronically signed by Denilson Carter MD on Dec 23 2016 4:12AM Referring Provider | | Line: [phone] ID: [id number] | |TECHNIQUE: Real-time scanning was performed with static images obtained. | | | |FINDINGS: | |Liver: Echotexture within normal limits without suspicious abnormality seen. Main portal ve in flow: Hepatopetal. | | | |Gallbladder: No stones, wall thickening, or sonographic Cosme's sign. | | | |Biliary System: CBD measures 5 mm. No intrahepatic or extrahepatic ductal dilatation. | | | |Other: None. | | | |IMPRESSION: | | | |Negative right upper quadrant ultrasound. | | | |[facility] | | | | | | Electronically signed by Denilson Carter MD on Dec 23 2016 4:12AM Referring Provider Karon e: [phone] ID: [id number] | + + Urinalysis, Reflex Microscopic and/or Culture (12/23/2016 2:32 AM PDT) + + + + + + | Component | Value | Ref Range | Performed | Pathologist | | | | | At | Signature | + + + + + + | Color | YELLOW | | EXTERNAL | | | | | | LAB | | + + + + + + | Clarity | CLEAR | | EXTERNAL | | | | | | LAB | | + + + + + + | Specific | 1.013 | 1.002 - 1.030 | EXTERNAL | | | [place] | | | LAB | | + + + + + + | Leukocyte | NEGATIVE | | EXTERNAL | | | Esterase, | | | LAB | | | Urine | | | | | + + + + + + | Nitrite, | NEGATIVE | | EXTERNAL | | | Urine | | | LAB | | + + + + + + | Urobilinoge | NORMAL | mg/dL | EXTERNAL | | | n, Urine | | | LAB | | + + + + + + | Protein, | NEGATIVE | mg/dL | EXTERNAL | | | Urine | | | LAB | | + + + + + + | pH, Urine | 7.0 | 5.0 - 8.0 | EXTERNAL | | | | | | LAB | | + + + + + + | Blood, | SMALL (A) | | EXTERNAL | | | Urine | | | LAB | | + + + + + + | Ketones | NEGATIVE | mg/dL | EXTERNAL | | | | | | LAB | | + + + + + + | Bilirubin, | NEGATIVE | | EXTERNAL | | | Urine | | | LAB | | + + + + + + | Glucose, | NEGATIVE | mg/dL | EXTERNAL | | | Urine | | | LAB | | + + + + + + | WBC, UA | 0-2 | 0 - 5 /hpf | EXTERNAL | | | | | | LAB | | + + + + + + | RBC, UA | 0-2 | 0 - 2 /hpf | EXTERNAL | | | | | | LAB | | + + + + + + | Bacteria, | NONE SEEN | | EXTERNAL | | | UA | | | LAB | | + + + + + + | Epithelial | NONE SEENComment: | /lpf | EXTERNAL | | | Cells | Testing performed at | | LAB | | | | [facility];[address] [place] [address] | | | | | | [facility];[place] [address] | | | | + + + + + + + + | Specimen | + + | | + + + +---------+ + + | Performing | Address | City/State/Zipcode | Phone Number | | Organization | | | | + +---------+ + + | EXTERNAL LAB | | | | + +---------+ + + External Lab: CBC (12/23/2016 2:30 AM PDT) + + + + + + | Component | Value | Ref Range | Performed | Pathologist | | | | | At | Signature | + + + + + + | WBC | 6.61 | 3.80 - 11.00 | EXTERNAL | | | | | K/uL | LAB | | + + + + + + | RED CELL | 4.97 | 4.20 - 5.70 | EXTERNAL | | | COUNT | | M/uL | LAB | | + + + + + + | Hgb | 15.2 | 13.2 - 17.0 | EXTERNAL | | | | | g/dL | LAB | | + + + + + + | Hematocrit, | 43.8 | 39.0 - 50.0 % | EXTERNAL | | | POC | | | LAB | | + + + + + + | MCV | 88.1 | 80.0 - 100.0 fl | EXTERNAL | | | | | | LAB | | + + + + + + | MCH | 30.6 | 27.0 - 34.0 pg | EXTERNAL | | | | | | LAB | | + + + + + + | MCHC | 34.7 | 32.0 - 35.5 | EXTERNAL | | | | | g/dL | LAB | | + + + + + + | RDW-CV | 38.5 | 37 - 53 fl | EXTERNAL | | | | | | LAB | | + + + + + + | Platelet | 219 | 150 - 400 K/uL | EXTERNAL | | | Count | | | LAB | | | Plasma | | | | | + + + + + + | MPV | 6.7 | fl | EXTERNAL | | | | | | LAB | | + + + + + + | Differentia | AUTOMATED | | EXTERNAL | | | l Type | | | LAB | | + + + + + + | % Segmented | 43.69 | % | EXTERNAL | | | | | | LAB | | | Neutrophils | | | | | + + + + + + | % | 46.12 | % | EXTERNAL | | | Lymphocytes | | | LAB | | + + + + + + | % Monocytes | 7.76 | % | EXTERNAL | | | | | | LAB | | + + + + + + | % | 1.29 | % | EXTERNAL | | | Eosinophils | | | LAB | | + + + + + + | % Basophils | 1.14 | % | EXTERNAL | | | | | | LAB | | + + + + + + | Absolute | 2.89 | 1.90 - 7.40 | EXTERNAL | | | Segmented | | K/uL | LAB | | | Neutrophils | | | | | + + + + + + | Absolute | 3.05 | 1.00 - 3.90 | EXTERNAL | | | Lymphocytes | | K/uL | LAB | | + + + + + + | Absolute | 0.51 | 0.00 - 0.80 | EXTERNAL | | | Monocytes | | K/uL | LAB | | + + + + + + | Absolute | 0.09 | 0.00 - 0.50 | EXTERNAL | | | Eosinophils | | K/uL | LAB | | + + + + + + | Absolute | 0.08Comment: Testing | 0.00 - 0.10 | EXTERNAL | | | Basophils | performed at [facility];[address] | LAB | | | [address];[place], [place] | | | | | | [address] | | | | + + + + + + + + | Specimen | + + | Blood specimen | | (specimen) | + + + +---------+ + + | Performing | Address | City/State/Zipcode | Phone Number | | Organization | | | | + +---------+ + + | EXTERNAL LAB | | | | + +---------+ + + C-Reactive Protein (12/23/2016 2:30 AM PDT) + + + + + + | Component | Value | Ref Range | Performed | Pathologist | | | | | At | Signature | + + + + + + | CRP | <0.3Comment: Testing | mg/dL | EXTERNAL | | | | performed at [facility] | | LAB | | | | [address];[place] | | | | | | [address] | | | | + + + + + + + + | Specimen | + + | Blood specimen | | (specimen) | + + + +---------+ + + | Performing | Address | City/State/Zipcode | Phone Number | | Organization | | | | + +---------+ + + | EXTERNAL LAB | | | | + +---------+ + + Lipase (12/23/2016 2:30 AM PDT) + + + + + + | Component | Value | Ref Range | Performed | Pathologist | | | | | At | Signature | + + + + + + | Lipase | 233Comment: Testing | 73 - 393 U/L | EXTERNAL | | | | performed at [facility];[address] | | LAB | | | | [address] [facility];[place], [place] | | | | | | [address] | | | | + + + + + + + + | Specimen | + + | Blood specimen | | (specimen) | + + + +---------+ + + | Performing | Address | City/State/Zipcode | Phone Number | | Organization | | | | + +---------+ + + | EXTERNAL LAB | | | | + +---------+ + + Comprehensive Metabolic Panel (12/23/2016 2:30 AM PDT) + + + + + + | Component | Value | Ref Range | Performed | Pathologist | | | | | At | Signature | + + + + + + | Na | 139 | 135 - 145 | EXTERNAL | | | | | mmol/L | LAB | | + + + + + + | K | 3.8 | 3.5 - 4.9 | EXTERNAL | | | | | mmol/L | LAB | | + + + + + + | Cl | 104 | 99 - 109 mmol/L | EXTERNAL | | | | | | LAB | | + + + + + + | CO2 | 26 | 23 - 32 mmol/L | EXTERNAL | | | | | | LAB | | + + + + + + | Anion Gap | 13 | 5 - 20 mmol/L | EXTERNAL | | | | | | LAB | | + + + + + + | Glucose, | 91 | 65 - 99 mg/dL | EXTERNAL | | | Fasting | | | LAB | | + + + + + + | BUN | 16 | 8 - 25 mg/dL | EXTERNAL | | | | | | LAB | | + + + + + + | Creatinine | 0.92 | 0.70 - 1.30 | EXTERNAL | | | | | mg/dL | LAB | | + + + + + + | BUN/Creatin | 17 | | EXTERNAL | | | ine Ratio | | | LAB | | + + + + + + | Calcium | 8.6 | 8.5 - 10.5 | EXTERNAL | | | | | mg/dL | LAB | | + + + + + + | Protein, | 7.5 | 6.3 - 8.2 g/dL | EXTERNAL | | | Total | | | LAB | | + + + + + + | Albumin | 3.9 | 3.6 - 5.0 g/dL | EXTERNAL | | | | | | LAB | | + + + + + + | Globulin | 3.7 | 1.3 - 4.9 g/dL | EXTERNAL | | | | | | LAB | | + + + + + + | A/G Ratio | 1.1 | 1.0 - 2.4 | EXTERNAL | | | | | | LAB | | + + + + + + | Bilirubin | 0.8 | 0.1 - 1.5 mg/dL | EXTERNAL | | | Total | | | LAB | | + + + + + + | ALP, | 80 | 35 - 115 U/L | EXTERNAL | | | External | | | LAB | | + + + + + + | AST | 22 | 10 - 45 U/L | EXTERNAL | | | | | | LAB | | + + + + + + | ALT | 47 | 10 - 65 U/L | EXTERNAL | | | | | | LAB | | + + + + + + | Estimated | >60Comment: GFR <60: | mL/min/1.73m2 | EXTERNAL | | | GFR | CHRONIC KIDNEY DISEASE, | | LAB | | | | IF FOUND OVER A 3 MONTH | | | | | | PERIOD.GFR <15: KIDNEY | | | | | | FAILURE.FOR | | | | | | AMERICANS, MULTIPLY THE | | | | | | CALCULATED GFR BY | | | | | | 1.210.Testing performed | | | | | | at [facility];[address];[place] [address] | | | | + + + + + + + + | Specimen | + + | Blood specimen | | (specimen) | + + + +---------+ + + | Performing | Address | City/State/Zipcode | Phone Number | | Organization | | | | + +---------+ + + | EXTERNAL LAB | | | | + +---------+ + + documented in this encounter Visit Diagnoses + + | Diagnosis | + + | Right upper quadrant abdominal pain Abdominal pain, right upper quadrant | + + documented in this encounter"
--- OUTSIDE RECORDS SUMMARY | ~2019-03-13 | XMS | Clinical Summary ---
Demographics + + + | Address | [address] | | | [place] [address] | + + + | Home Phone | | + + + | Preferred Language | Unknown | + + + | Marital Status | | + + + | Oriental Orthodox Affiliation | Unknown | + + + | Race | Unknown | + + + | Ethnic Group | Unknown | + + + Author + + + | Author | [facility] (Historical as of | | | 10-13-18) | + + + | Organization | [facility] (Historical as of | | | 10-13-18) | + + + | Address | Unknown | + + + | Phone | Unavailable | + + + Support + + +---------+ + | Name | Relationship | Address | Phone | + + +---------+ + | Saige Forman | TENA | Unknown | | + + +---------+ + Care Team Providers + +------+ + | Care Log Stacker Operator Name | Role | Phone | + +------+ + | Kemar Covington DO | PP | | + +------+ + Allergies No Known Allergies Current Medications No known medications Active Problems Not on file Family History + + +------+ + | Medical History | Relation | Name | Comments | + + +------+ + | Diabetes type II | Father | | | + + +------+ + + +------+ + + | Relation | Name | Status | Comments | + +------+ + + | Father | | | | + +------+ + + Social History + +-------+ +--------+------+ | Tobacco Use | Types | Packs/Day | Years | Date | | | | | Used | | + +-------+ +--------+------+ | Never Smoker | | | | | + +-------+ +--------+------+ + +---+---+---+ | Smokeless Tobacco: | | | | | Current User | | | | + +---+---+---+ + + +---------+ + | Alcohol Use | Drinks/We | oz/Week | Comments | | | ek | | | + + +---------+ + | No | | | | + + +---------+ + + + + | Sex Assigned at | Date Recorded | | | | + + + | Not on file | | + + + Last Filed Vital Signs + + + + | Vital Sign | Reading | Time Taken | + + + + | Blood Pressure | 102/60 | 03/13/2017 3:32 PM PST | + + + + | Pulse | 68 | 03/13/2017 3:32 PM PST | + + + + | Temperature | 36.8 C (98.3 F) | 12/23/2016 4:12 AM PDT | + + + + | Respiratory Rate | 18 | 12/23/2016 4:12 AM PDT | + + + + | Oxygen Saturation | 98% | 03/13/2017 3:32 PM PST | + + + + | Inhaled Oxygen | - | - | | Concentration | | | + + + + | Weight | 79.7 kg (175 lb 12.8 | 03/13/2017 3:32 PM PST | | | oz) | | + + + + | Height | - | - | + + + + | Body Mass Index | - | - | + + + + Plan of Treatment + + + + + | Health Maintenance | Due Date | Last Done | Comments | + + + + + | Vaccine: Influenza | | | | | (#1) | 9 | | | + + + + + | Vaccine: | | 07/16/2012 | | | Dtap/Tdap/Td (2 - | 3 | | | | Td) | | | | + + + + + Results Not on filefrom Last 3 Months Insurance +---------+--------+ +------+-------+ + | Payer | Benefi | Subscriber | Type | Phone | Address | | | t Plan | ID | | | | | | / | | | | | | | Group | | | | | +---------+--------+ +------+-------+ + | PREMERA | PREMER | [id number] | | | [address] [address] | | | A BLUE | 1 | | | [place], [place] | | | CARD | | | | [phone] | +---------+--------+ +------+-------+ + + +--------+ +--------+ + + | Guarantor Name | Accoun | Relation to | Date | Phone | Billing Address | | | t Type | Patient | of | | | | | | | | | | + +--------+ +--------+ + + | JORDAN FORMAN | Person | Self | [birth year] | Home: | [address] [place], | | | al/Fam | | [phone] | [phone] [place] [address] | | | gio | | | [phone] | | + +--------+ +--------+ + +"
--- OUTSIDE RECORDS SUMMARY | ~2019-03-13 | XMS | Encounter Summary ---
Demographics + + + | Address | [address] | | | [place] [address] | + + + | Home Phone | | + + + | Preferred Language | Unknown | + + + | Marital Status | Single | + + + | Gnosticist Affiliation | [phone] | + + + | Race | Unknown | + + + | Ethnic Group | Unknown | + + + Author + + + | Author | [facility] | | | and Freddy | + + + | Organization | [facility] | | | [...] | | | | | [place] [address] | | + + + + + Care Team Providers + +------+ + | Care Inner Tube Inserter Name | Role | Phone | + +------+ + | Kemar Covington DO | PCP | | + +------+ + Reason for Visit + + + | Reason | Comments | + + + | Biopsy Results | | + + + Encounter Details +--------+ + + + + | Date | Type | Department | Care Team | Description | +--------+ + + + + | 02/02/ | Telephone | [facility] | Abhinav Andrea | Biopsy Results | | 2017 | | GASTROENTEROLOGY | MD [address] | | | | | [address] | [address] [facility] | | | | | [address] [place] | [place] [address] | | | | | [address] | [phone] | | | | | [phone] | | | +--------+ + + + [...] filedocumented as of this encounter Visit Diagnoses + + | Diagnosis | + + | Helicobacter positive gastritis Helicobacter pylori (H. pylori) | + + documented in this encounter
[~2019-03-13 18:27] MED LIST changes: +GLUTOSE 1537.5 GM PO
--- OUTSIDE RECORDS SUMMARY | 2019-03-13 18:30 | XMS ---
PreManage Notification: JORDAN MOSCOSO Security Frame Opener Events No recent Security Events currently on file CRITERIA MET - [facility] - 2 Visits in 30 Days CARE PROVIDERS There are no care providers on record at this time. Chris has no Care Guidelines for this patient. Nasir VISIT COUNT (12 MO.) 1 [facility] [place] [facility]_ 1 [facility] TOTAL 2 NOTE: Visits indicate total known visits. ED/C VISIT TRACKING (12 MO.) 03/13/2019 18:28 [facility] [place] TYPE: Emergency COMPLAINT: - POST OP PROBLEM 02/26/2019 18:56 [facility] [place] TYPE: Emergency COMPLAINT: - PT STATES ABD PAIN, N/V INPATIENT VISIT TRACKING (12 MO.) No inpatient visits to display in this time frame [email or web address]
--- NOTE | 2019-03-14 08:48 | CONS ---
[facility] [address] [place], [place] [address] Signed DATE OF CONSULTATION: 03/14/2019 CHIEF COMPLAINT: Right lower quadrant abdominal pain. 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 He is currently single but has 2 children. He went down to [place] to visit his family. He developed appendicitis. He underwent laparoscopic appendectomy. He had been doing fine until few days ago where he started developing increasing right lower quadrant abdominal pain. He said just moving around makes it worse. He came to emergency room for evaluation. He has localized peritoneal signs and symptoms in the right lower quadrant. His white count is elevated at 12.3. Lactic acid was normal at 1.3. Chest x-ray was fine. Blood cultures are pending. A CT scan of abdomen and pelvis shows an inflammatory area 1.8 x 2.7 x 2.1 cm near the area of the cecum and the terminal ileum. The terminal ileum seems to be lying over top of that area, most likely a small abscess. He has been admitted, given IV fluids, pain control, and antibiotics. PAST MEDICAL HISTORY: Reactive hypoglycemia. PAST SURGICAL HISTORY: Laparoscopic appendectomy on 02/26/2019. SOCIAL HISTORY: He does not smoke or drink. He is single and has 2 children. 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 He prefers the [facility] here in [place]. He has no primary care provider, although he did see Dr. Kemar Covington previously. He lives in [place]. His mother is Kourtney Anton. FAMILY HISTORY: His dad had rheumatic fever as a child and of complications of diabetes. REVIEW OF SYSTEMS: He had 10 systems reviewed. He said he had reactive hypoglycemia. He went through a huge evaluation and they ruled out insulinoma. ALLERGIES: Protonix makes him tachycardic. MEDICATIONS: None. Electronically Signed By: MAHESH ANDRES MD 03/14/19 0848 PATIENT NAME: JORDAN MOSCOSO CONSULTATION DATE OF : 79 REPORT #: [id number] PHYSICIAN: MAHESH ANDRES MD PCP: NO PRIMARY CARE PHYSICIAN REPORT IS CONFIDENTIAL AND NOT TO BE RELEASED WITHOUT AUTHORIZATION [facility] [address] [place], [place] [address] Signed PHYSICAL EXAMINATION: VITAL SIGNS: Blood pressure is 98/68, heart rate 98, respiratory rate 16, temperature is 100 degrees. He is 96% on room air. He is 5 feet 11 inches, 80 kg. GENERAL: Jordan is a 43-year-old gentleman, lying supine in his hospital bed. He is mildly diaphoretic. He is alert, awake and interactive, and answers well. LUNGS: Clear to auscultation bilaterally. HEART: Borderline fast. ABDOMEN: Soft and flat, but he certainly has localized peritoneal signs and symptoms in the right lower quadrant. LABORATORY DATA: His white blood cell count is 12.3, neutrophils 74, potassium 3.5, lactic acid 1.3, albumin 4.2. Blood cultures are pending. RADIOGRAPHIC STUDIES: Chest x-ray was unremarkable. CT scan is reviewed and shows inflammatory process at the cecum and terminal ileum about 1.8 x 2.7 x 2.1 cm. ASSESSMENT AND PLAN: Jordan is a 43-year-old gentleman who appears to have a small abscess following his laparoscopic appendectomy. He has been admitted and started on IV fluids, antibiotics. I actually was called in this morning for an emergency for another patient. We are currently dealing with that and we are going to have to get back to Jordan here later today. He may very well need a laparotomy then with drain placement for this inflammatory process in the right lower quadrant. He has expressed understanding and agrees above plan. Mahesh Andres MD ALB/MODL /[id number] cc: Mahesh Andres MD Copies: MAHESH ANDRES MD Electronically Signed By: MAHESH ANDRES MD 03/14/19 0848 PATIENT NAME: JORDAN MOSCOSO CONSULTATION DATE OF : 79 REPORT #: [id number] PHYSICIAN: MAHESH ANDRES MD PCP: NO PRIMARY CARE PHYSICIAN REPORT IS CONFIDENTIAL AND NOT TO BE RELEASED WITHOUT AUTHORIZATION [facility] [address], [place] [address] Signed ~ Electronically Signed By: MAHESH ANDRES MD 03/14/19 0848 PATIENT NAME: DANISJORDANVaishali HONGIS CONSULTATION DATE OF : 79 REPORT #: [id number] PHYSICIAN: MAHESH ANDRES MD PCP: NO PRIMARY CARE PHYSICIAN REPORT IS CONFIDENTIAL AND NOT TO BE RELEASED WITHOUT AUTHORIZATION
--- NOTE | 2019-03-14 12:44 | EKG ---
[facility] [address] [place], [place] [address] Signed Sinus tachycardia Otherwise normal ECG When compared with ECG of 25-DEC-2016 00:18, Vent. rate has increased BY 41 BPM Confirmed by HANK DOSS MD ([id number]) on 03/14/2019 12:43:54 PM Electronically Signed By: HANK DOSS MD 03/14/19 1244 PATIENT NAME: DESMONDEliasJORDAN Electrocardiogram DATE OF : 79 PHYSICIAN: HANK DOSS MD REPORT #: [id number] REPORT IS CONFIDENTIAL AND NOT TO BE RELEASED WITHOUT AUTHORIZATION
[2019-03-14] MEDS ORDERED: GLUCOSE4 GM PO (15:15)
--- NOTE | 2019-03-14 16:58 | OR ---
[facility] [address] [place], [place] [address] Signed DATE OF OPERATION: 03/14/2019 SURGEON: Mahesh Andres MD PREOPERATIVE DIAGNOSIS: Right lower quadrant postoperative appendectomy abscess. POSTOPERATIVE DIAGNOSIS: Right lower quadrant postoperative appendectomy abscess. PROCEDURES: 1. Laparotomy with drainage of abscess. 2. Placement of right lower quadrant/retrocecal drain. 3. Culture of abscess cavity. ESTIMATED BLOOD LOSS: 100 mL. 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 He had been down in [place], [place] to visit family. He underwent a very straightforward laparoscopic appendectomy for a non-ruptured appendix on 02/26/2019. In the last four or five days, he has been having increasing right lower quadrant abdominal pain and fevers. He finally came to the emergency room for evaluation. His white count was 12.3. He had localized peritonitis over the right mid quadrant and right lower quadrant. CT scan showed the inflamed terminal ileum and small abscess cavity measuring 1.8 x 2.7 x 2.1 cm. I have been asked to admit him as a general surgeon on-call. He has been given IV fluids, pain control, and started on cefepime and Flagyl. I met with Jodran earlier this morning. I reviewed the above findings with him in detail. I explained to Jordan that probably it would be best if we made a small periumbilical laparotomy, we drain that abscess and place our drain. I reviewed the surgery with him in detail. He understands there is risk to surgery including, but not limited to bleeding, infection, scarring, change in contour of the skin, damage to bowel, recurrent abscess and/or need for bowel resection with possible anastomotic leak. He had expressed understanding and wished to proceed. PROCEDURE NOTE: I met with Jordan in our preop area. After reviewing his questions, we took him into the operating room. He was placed in the supine position under general endotracheal tube anesthesia. He was on preoperative antibiotics as well as subcutaneous heparin. His Electronically Signed By: MAHESH ANDRES MD 03/14/19 1658 PATIENT NAME: JORDAN MOSCOSO OPERATIVE REPORT DATE OF : 79 REPORT #: [id number] PHYSICIAN: MAHESH ANDRES MD PCP: NO PRIMARY CARE PHYSICIAN REPORT IS CONFIDENTIAL AND NOT TO BE RELEASED WITHOUT AUTHORIZATION [facility] [address] [place], [place] [address] [address] in [address]. A Ulloa catheter had been inserted with return of clear yellow urine without difficulty. He was then prepped and draped in the usual sterile fashion. Once he was pharmacologically paralyzed, I could feel the indurated area on palpation. A standard periumbilical incision was made and carried in the abdomen without difficulty. He had the typical findings where the small abscess cavity was behind the cecum and underneath the mesentery of the terminal ileum. We took wound cultures in that area. We freed up the cecum in the terminal ileum just a short distance to access the abscess cavity. The mesentery of the terminal ileum was quite thickened. However, I did not feel any fluctuance in that area. The small bowel itself was not terribly inflamed, mostly in the mesentery. That mesentery had been lying over top of that abscess cavity. Consequently, we did not perform a resection. We brought our #10 flat Terrance drain through the right upper quadrant just below the costal margin and out lateral. This was brought down the right gutter and behind the cecum and the mesentery to the terminal ileum. It was held in place at the level of the skin with a 2-0 nylon suture. The wound was then irrigated and suctioned out until clear. The cecum and terminal ileum were allowed to lie back down over the drain. The small bowel was returned to its position along with the mesentery. All counts were correct. We then closed the midline fascia very carefully with interrupted #1 [id number] PDS sutures. The wound was irrigated and suctioned out until clear. The dermis was reapproximated with interrupted 3-0 subcuticular Monocryl sutures. Kandice were then used to reapproximate the skin. A bulb had been placed onto the drain. His Ulloa catheter was then discontinued without difficulty. He was awakened from his anesthesia, extubated in the OR, and taken to recovery room in stable condition. Mahesh Andres MD ALB/MODL /[id number] cc: MD Marcos Zhong MD [facility] Electronically Signed By: MAHESH ANDRES MD 03/14/19 1658 PATIENT NAME: JORDAN MOSCOSO OPERATIVE REPORT DATE OF : 79 REPORT #: [id number] PHYSICIAN: MAHESH ANDRES MD PCP: NO PRIMARY CARE PHYSICIAN REPORT IS CONFIDENTIAL AND NOT TO BE RELEASED WITHOUT AUTHORIZATION [facility] [address] [place], [place] [address] Signed Copies: MAHESH ANDRES MD ~ Electronically Signed By: MAHESH ANDRES MD 03/14/19 1658 PATIENT NAME: JORDAN MOSCOSO OPERATIVE REPORT DATE OF : 79 REPORT #: [id number] PHYSICIAN: MAHESH ANDRES MD PCP: NO PRIMARY CARE PHYSICIAN REPORT IS CONFIDENTIAL AND NOT TO BE RELEASED WITHOUT AUTHORIZATION
--- NOTE | 2019-03-19 08:04 | DS ---
[facility] [address] [place], [place] [address] Signed ADMISSION DATE: 03/14/2019 DISCHARGE DATE: 03/19/2019 FINAL DIAGNOSIS: Postoperative intraabdominal abscess following laparoscopic appendectomy. PROCEDURE: Laparotomy with drainage of intraabdominal abscess and drain placement. HISTORY OF PRESENT ILLNESS: Jordan is a 43-year-old, otherwise healthy gentleman, who had been out to [place], [place] to visit family. He underwent a routine laparoscopic appendectomy while in [place]. Four to five days prior to this admission, he was having increasing right mid quadrant and right lower quadrant abdominal pain. He finally came to the emergency room as his symptoms were escalating. His white count was 12.3, and his CT scan showed significant inflammatory changes around the cecum and terminal ileum. There appeared to be a small abscess measuring 1.8 x 2.7 x 2.1 cm. I had been asked to admit him as a general surgeon on-call. HOSPITAL COURSE: Jordan was admitted as above and hydrated and started on cefepime and Flagyl. We have taken him to the operating room later that day for small periumbilical laparotomy and drainage of his abscess. We had to mobilize the cecum and terminal ileum together to evacuate the abscess and place our drain. Our abscess cultures have been negative so far. Jordan has made improvements each and every day. His drainage is now completely serous. His fevers went away within a day or two and he has been off the narcotics since postoperative day #2. He is doing well on his Tylenol and ibuprofen. He is now in a regular diet. He has had lots of flatus and had several bowel movements. His abdominal exam is completely benign at this point. He has no incisional pain and no pain over the right mid quadrant or right lower quadrant at this point. There are no local signs or symptoms of infection around the incision or his drain site. Overall, he has made good progress. At this point, we are going to be discharging him to home with his drain in place. DISCHARGE PLANS AND MEDICATIONS: Jordan has declined narcotics. He is going to use Tylenol, ibuprofen or Aleve. He will keep the drain in place and record that each day. Our nursing staff has instructed him in that regard. We are going to send him home with Augmentin 500 mg one tablet p.o. b.i.d. for 7 days as well as Flagyl 500 mg one tablet p.o. t.i.d. for 7 days, I will give him 12 days of antibiotics. We will remove his sanjeev today. We will see him back in the office in about a week for followup. He will be off work during that time. Electronically Signed By: MAHESH ANDRES MD 03/19/19 0804 PATIENT NAME: JORDAN MOSCOSO DISCHARGE SUMMARY DATE OF : 79 REPORT #: [id number] PHYSICIAN: MAHESH ANDRES MD PCP: NO PRIMARY CARE PHYSICIAN REPORT IS CONFIDENTIAL AND NOT TO BE RELEASED WITHOUT AUTHORIZATION [address] [address] Signed I have asked him not to do any heavy pushing, pulling, or lifting over about 20 pounds. He is welcome to shower and bathe as usual as he has here in the hospital. He has expressed understanding and agrees above plan. MD NURIA Zhong/MODL /[id number] cc: Marcos Rowland MD [place], [place] Mahesh Andres MD Copies: MAHESH ANDRES MD ~ Electronically Signed By: MAHESH ANDRES MD 03/19/19 0804 PATIENT NAME: JORDAN MOSCOSO DISCHARGE SUMMARY DATE OF : 79 REPORT #: [id number] PHYSICIAN: MAHESH ANDRES MD PCP: NO PRIMARY CARE PHYSICIAN REPORT IS CONFIDENTIAL AND NOT TO BE RELEASED WITHOUT AUTHORIZATION
[2019-03-19] MEDS ORDERED: FLAGYL500 MG PO (08:59)
[2019-03-19] MEDS ORDERED: AUGMENTIN 500-1 EACH PO (09:00)
== END 2019-03-19 09:53 | disposition home or self-care (01) | DRG 856 ==
LOC: ED 18:27 → MS 18:29
PROVIDERS: ADMIT Colon & Rectal Surgery
PROC: 3E0T3BZ Introduction of Anesthetic Agent into Peripheral Nerves and Plexi, Percutaneous Approach (ICD-10-PCS; 2019-03-14)
PROC: 0W9G0ZZ Drainage of Peritoneal Cavity, Open Approach (ICD-10-PCS; principal; 2019-03-14 11:00)
DX: T81.43XA Infection following a procedure, organ and space surgical site, initial encounter (principal); K65.1 Peritoneal abscess; G89.18 Other acute postprocedural pain; Z88.8 Allergy status to other drugs, medicaments and biological substances
CPT/HCPCS: 00790; 36415; 64488; 71045; 74177; 76942; 80048; 80053; 81001; 83605; 83735; 84100; 85025; 87040; 87502; 93005; 93010; 96360; 96361; 99284-25; G0378; J0692; J1100; J1170; J1644; J1885; J2405; J2550; J2704; J2795; J3010; J7030; J7060; J7121; Q9967

== ENCOUNTER 2021-01-02 10:42 | Emergency (ER) | payer BC ==
[~2021-01-02] VITALS: Ht 180.3 cm; Wt 86.2 kg
[~2021-01-02 10:42] MED LIST changes: +AUGMENTIN 500-1 EACH PO; +FLAGYL500 MG PO; +GLUCOSE4 GM PO
--- OUTSIDE RECORDS SUMMARY | 2021-01-02 10:52 | XMS ---
PreManage Notification: JORDAN MOSCOSO Security Cloth Carrier Events No recent Security Events currently on file CRITERIA MET - [facility] - 2 Visits in 30 Days - Group Notification CARE PROVIDERS There are no care providers on record at this time. Chris has no Care Guidelines for this patient. Nas[facility] ([facility] MO.) [facility] NOTE: Visits indicate total known visits. ED/C VISIT TRACKING (12 MO.) [facility] 10[facility] [place] [facility] COMPLAINT: - SHAKEY,NAUSEA,SOB, FEELS FAINT 12/10/2020 16:17 [facility] [place] TYPE: Emergency COMPLAINT: - LOW BLOOD SUGAR DIAGNOSES: - Dizziness and giddiness - Hypoglycemia, unspecified - Allergy status to other drugs, medicaments and biological substances INPATIENT VISIT TRACKING (12 MO.) No inpatient visits to display in this time frame [email or web address]
[2021-01-02] MEDS ORDERED: LEVOFLOXACIN500 MG PO (14:41)
--- NOTE | 2021-01-04 13:40 | EKG ---
[facility] [address] [facility] [place], [place] [address] Signed Normal sinus rhythm Normal ECG When compared with ECG of 13-MAR-2019 19:38, No significant change was found Confirmed by HANK DOSS MD ([id number]) on 01/04/2021 1:40:10 PM Electronically Signed By: HANK DOSS MD 01/04/21 1340 PATIENT NAME: DESMONDEliasJORDAN Electrocardiogram DATE OF : 79 PHYSICIAN: HANK DOSS MD REPORT #: [id number] REPORT IS CONFIDENTIAL AND NOT TO BE RELEASED WITHOUT AUTHORIZATION
== END 2021-01-02 15:15 | disposition home or self-care (01) ==
LOC: ED 10:42
DX: N45.1 Epididymitis (principal); E16.2 Hypoglycemia, unspecified; Z88.8 Allergy status to other drugs, medicaments and biological substances
CPT/HCPCS: 74160; 74170; 76870; 80053; 81001; 83690; 83735; 84443; 85025; 93005; 93010; 99285-25

== ENCOUNTER 2021-01-11 20:35 | Emergency (ER) | payer BC ==
[~2021-01-11] VITALS: Ht 180.3 cm; Wt 85.0 kg
[~2021-01-11 20:35] MED LIST changes: +LEVOFLOXACIN500 MG PO
--- OUTSIDE RECORDS SUMMARY | 2021-01-11 20:42 | XMS ---
PreManage Notification: JORDAN MOSCOSO Security Collet Driller Events No recent Security Events currently on file CRITERIA MET - Group Notification - [facility] - 2 Visits in 30 Days CARE PROVIDERS There are no care providers on record at this time. Chris has no Care Guidelines for this patient. Nasir VISIT COUNT (12 MO.) 1 [facility] 3 [facility] TOTAL 4 NOTE: Visits indicate total known visits. ED/C VISIT TRACKING (12 MO.) [facility] [place] [facility] COMPLAINT: - HAND AND FEET NUMBNESS, DIZZY 01/07/2021 23:33 [facility] [place] TYPE: Emergency DIAGNOSES: - WEAKNESS - Weakness 01/02/2021 10:44 [facility] [place] TYPE: Emergency COMPLAINT: - SHAKEY,NAUSEA,SOB, FEELS FAINT DIAGNOSES: - Allergy status to other drugs, medicaments and biological substances - Palpitations - Hypoglycemia, unspecified - Epididymitis 12/10/2020 16:17 [facility] [place] TYPE: Emergency COMPLAINT: - LOW BLOOD SUGAR DIAGNOSES: - Dizziness and giddiness - Hypoglycemia, unspecified - Allergy status to other drugs, medicaments and biological substances INPATIENT VISIT TRACKING (12 MO.) No inpatient visits to display in this time frame [email or web address]
--- NOTE | 2021-01-12 19:06 | EKG ---
[facility] [address] [facility] [place], [place] [address] Signed Normal sinus rhythm Normal ECG When compared with ECG of 02-JAN-2021 12:04, T wave amplitude has decreased in Anterior leads Confirmed by KATHY PAL MD ([id number]) on 01/12/2021 7:06:42 PM Electronically Signed By: KATHY PAL MD 01/12/21 1906 PATIENT NAME: JORDAN MOSCOSO Electrocardiogram DATE OF : 79 PHYSICIAN: KATHY PAL MD REPORT #: [id number] REPORT IS CONFIDENTIAL AND NOT TO BE RELEASED WITHOUT AUTHORIZATION
== END 2021-01-12 00:29 | disposition home or self-care (01) ==
LOC: ED 20:35
DX: R53.1 Weakness (principal); R06.00 Dyspnea, unspecified; R20.2 Paresthesia of skin; Z90.89 Acquired absence of other organs; Z88.8 Allergy status to other drugs, medicaments and biological substances; Z20.822 Contact with and (suspected) exposure to COVID-19
CPT/HCPCS: 70450; 71046; 80053; 83735; 84443; 85025; 93005; 93010; 99285-25; C9803; J7121; U0003

== ENCOUNTER 2021-09-23 16:44 | Emergency (ER) | payer BC ==
[~2021-09-23] VITALS: Ht 180.3 cm; Wt 85.0 kg
--- NOTE | 2021-09-24 08:55 | EKG ---
[facility] [address] [facility] [place], [place] [address] Signed Normal sinus rhythm Normal ECG When compared with ECG of 11-JAN-2021 21:56, No significant change was found Confirmed by KATHY PAL MD ([id number]) on 09/24/2021 8:55:05 AM Electronically Signed By: KATHY PAL MD 09/24/21 0855 PATIENT NAME: DANISJORDAN Electrocardiogram DATE OF : 79 PHYSICIAN: KATHY PAL MD REPORT #: [id number] REPORT IS CONFIDENTIAL AND NOT TO BE RELEASED WITHOUT AUTHORIZATION
== END 2021-09-23 19:42 | disposition home or self-care (01) ==
LOC: ED 16:44
DX: R00.2 Palpitations (principal); Z88.8 Allergy status to other drugs, medicaments and biological substances
CPT/HCPCS: 36415; 71045; 80053; 83735; 84443; 84484; 85025; 93005; 93010; 99285-25